=== PATIENT | female | born 1970 | race Caucasian/White ===

== ENCOUNTER 2017-03-07 23:07 | Emergency (ER) | payer SELFPAY ==
[2017-03-07 23:12] VITALS: BP 122/59; PULSE 104; RESP 16; TEMP 98.4; O2SAT 98
[2017-03-08] MEDS ORDERED: ONDANSETRON HCL 4 MG/2 ML VIAL ONE ×2 (03:05→03:06)
[2017-03-08] MEDS ORDERED: KETOROLAC TROMETHAMINE 30 MG/ML (IVP) VIAL ONE (03:05)
--- NOTE | 2017-03-08 04:19 | PD ---
HPI Chief Complaint: Flank/Kidney Pain Time Seen by Provider: 04:00 Travel History International Travel<30 days: No Contact w/Intl Traveler<30days: No Traveled to known affect area: No History of Present Illness HPI The patient is a 46 year old female who presents to the [facility] emergency department with a history of bilateral flank pain radiating into bilateral sides of the abdomen that is been present for the last month. The patient reports that the pain waxes and wanes in severity. She reports that today the pain became severe again. She reports the pain is worse in the right flank compared to the left. She reports that it is associated with dysuria and urinary frequency and urgency. The patient reports that a week and a half to 2 weeks ago she was seen at another emergency department and diagnosed with a kidney infection. She reports that she has a history of kidney stones and thought that it may be related to a kidney stone. She had a CT scan without contrast that showed no evidence of stones. The patient was treated with a 5 day course of ciprofloxacin which she completed a week ago. She reports that she briefly improved and then the symptoms began to worsen again. On review of systems, she denies having any known recent fevers, cough, congestion, neck pain, chest pain, shortness of breath, diarrhea,or neurologic symptoms. The patient reports that she has had nausea and vomiting, last 2 weeks ago related to the pain. The patient reports that she has also had problems with chronic constipation. She last moved her bowels yesterday in small amount. LMP: The beginning of February. [facility] Past Medical History Narrative Medical The patient's past medical history is significant for kidney stones. Past Surgical History Narrative Surgical The patient denies any past surgical history. Social History Alcohol Use: No Tobacco Use: Yes Substance Use: No Allergies-Medications (Allergen,Severity, Reaction): Coded Allergies: Penicillins (Verified Allergy, Severe, 03/07/17) Sulfa (Sulfonamide Antibiotics) (Verified Allergy, Severe, 03/07/17) Narrative Medication The patient completed a course of ciprofloxacin. The patient has a prescription for Eudora to be taken when necessary for her flank pain. Review of Systems Except as stated in HPI: all other systems reviewed are Neg General / Constitutional: No: Fever Eyes: No: Visual changes HENT: No: Headaches Cardiovascular: No: Chest Pain or Discomfort Respiratory: No: Shortness of Breath Gastrointestinal: Positive: Nausea, Vomiting, Abdominal Pain, No: Diarrhea, Hematemesis, Hematochezia, Changes in Bowel Habits, Indigestion, Loss of Appetite Genitourinary: Positive: Urgency, Frequency, Dysuria, Flank Pain Musculoskeletal: No: Pain Skin: No Rash Neurologic: No: Weakness Psychiatric: No: Depression Endocrine: No: Polydipsia Hematologic/Lymphatic: No: Easy Bruising Physical Exam Narrative General: The patient is a well-developed well-nourished female in no acute distress. Head and Neck exam: Head is normocephalic atraumatic. Eyes: EOMI, pupils are equal round and reactive to light. Nose: Midline septum with pink mucous membranes Mouth: Dentition unremarkable. Moist mucus membranes. Posterior oropharynx is not erythematous. No tonsillar hypertrophy. Uvula midline. Airway patent. Neck: No palpable lymphadenopathy. No nuchal rigidity. No thyromegaly. Cardiovascular: Regular rate and rhythm without murmurs, gallops, or rubs. Lungs: Clear to auscultation bilaterally. No wheezes, rhonchi, or rales. Abdomen: Soft, with tenderness on palpation of bilateral lower quadrants of the abdomen and suprapubic area. No other tenderness on palpation of the other quadrants of the abdomen. No guarding, rebound, or rigidity. Negative Newnan sign. Normal bowel sounds are audible. No tenderness on palpation of McBurney's point. Extremities: No clubbing, cyanosis, or edema. 2+ pulses in all 4 extremities. No calf tenderness on palpation. Back: No spinous process tenderness to palpation. Bilateral CVA tenderness worse on the right compared to the left. Neurologic Exam: Grossly nonfocal. Skin Exam: No rash noted. Intact skin that is warm and dry. Data Data Last Documented VS Vital Signs Date Time Temp Pulse Resp B/P (MAP) Pulse Ox O2 Delivery O2 Flow Rate FiO2 03/07/17 23:12 98.4 104 16 122/59 (80) 98 Orders Orders Ketorolac Inj (Toradol Inj) (03/08/17 03:05) Ondansetron Inj (Zofran Inj) (03/08/17 03:05) Ondansetron Inj (Zofran Inj) (03/08/17 03:06) Creatine Kinase (Cpk) (03/08/17 02:28) Comprehensive Metabolic Panel (03/08/17 02:28) C-Reactive Protein (Crp) (03/08/17 02:28) Lipase (03/08/17 02:28) Complete Blood Count With Diff (03/08/17 02:28) Iohexol 350 Inj (Omnipaque 350 Inj) (03/08/17 05:31) Ct Abd/Pel W Iv Contrast(Rout) (03/08/17 ) Urine Culture (03/08/17 05:13) Labs Laboratory Tests Test 03/08/17 02:28 White Blood Count 9.1 TH/MM3 Red Blood Count 5.05 MIL/MM3 Hemoglobin 15.3 GM/DL Hematocrit 46.1 % Mean Corpuscular Volume 91.2 FL Mean Corpuscular Hemoglobin 30.2 PG Mean Corpuscular Hemoglobin Concent 33.1 % Red Cell Distribution Width 14.3 % Platelet Count 238 TH/MM3 Mean Platelet Volume 9.1 FL Neutrophils (%) (Auto) 60.2 % Lymphocytes (%) (Auto) 29.8 % Monocytes (%) (Auto) 7.0 % Eosinophils (%) (Auto) 2.2 % Basophils (%) (Auto) 0.8 % Neutrophils # (Auto) 5.4 TH/MM3 Lymphocytes # (Auto) 2.7 TH/MM3 Monocytes # (Auto) 0.6 TH/MM3 Eosinophils # (Auto) 0.2 TH/MM3 Basophils # (Auto) 0.1 TH/MM3 CBC Comment DIFF FINAL Differential Comment Blood Urea Nitrogen 19 MG/DL Creatinine 0.99 MG/DL Random Glucose 72 MG/DL Total Protein 8.0 GM/DL Albumin 3.7 GM/DL Calcium Level 9.1 MG/DL Alkaline Phosphatase 86 U/L Aspartate Amino Transf (AST/SGOT) 44 U/L Alanine Aminotransferase (ALT/SGPT) 62 U/L Total Bilirubin 0.4 MG/DL Sodium Level 139 MEQ/L Potassium Level 4.3 MEQ/L Chloride Level 106 MEQ/L Carbon Dioxide Level 27.2 MEQ/L Anion Gap 6 MEQ/L Estimat Glomerular Filtration Rate 61 ML/MIN Total Creatine Kinase 83 U/L C-Reactive Protein LESS THAN 0.29 MG/DL Lipase 143 U/L MDM Medical Decision Making Medical Screen Exam Complete: Yes Emergency Medical Condition: Yes Medical Record Reviewed: Yes Differential Diagnosis Diverticulitis, versus kidney stone, versus musculoskeletal strain, versus constipation, versus colitis Narrative Course During the course of the patients emergency department visit, the patients history, examination, and differential diagnosis were reviewed with the patient. The patient had IV access obtained and blood work sent for analysis. The patient had a CT scan of the abdomen and pelvis ordered with IV contrast to evaluate for possible diverticulitis. The patient was initially provided normal saline 1 L IV fluid bolus, Toradol 15 mg IV, Zofran 4 mg IV. The patients laboratory studies were reviewed and remarkable for a CBC that is within normal limits. CMP is remarkable for BUN of 19, glucose 72, AST 44, ALT 62, CPK is 83, C reactive protein is less than 0.29, lipase 143. Urine was sent for culture as the patient was unable to provide enough of the sample for urinalysis. Radiology studies were reviewed and remarkable for CT scan of the abdomen and pelvis shows no acute abnormality. Reportedly read as a normal examination, however the lumbar spine did show some facet arthropathy. The patient will be discharged home with a prescription for Cipro, given the patient's allergy to penicillin and sulfa antibiotic. I suspect that the patient's course of antibiotic was too short and she reports that she did have improvement of her symptoms on the antibiotic. The patient reports that she does have Eudora at home that she can take as needed for pain. The patient is resting comfortably and feels better, is alert and in no distress. The patients results and examination findings were discussed with the patient. The repeat examination is unremarkable and benign. The history, exam, diagnostic testing, and current condition do not suggest any significant pathology to warrant further testing, continued ED treatment, admission, or surgical evaluation at this point. The vital signs have been stable. The patient does not have uncontrollable pain, intractable vomiting, or other significant symptoms. The patient's condition is stable and appropriate for discharge. The patient will pursue further outpatient evaluation with a primary care physician or other designated or consulting physician as indicated in the discharge instructions. The patient expressed understanding and was agreeable with this plan. Diagnosis Primary Impression: Abdominal pain Qualified Codes: R10.30 - Lower abdominal pain, unspecified Additional Impression: Bilateral flank pain Referrals: Primary Care Physician 3 days Patient Instructions: Flank Pain (ED), General Instructions, Urinary Tract Infection in Women (ED) Med/Other Pt SpecificInfo: Prescription(s) given Scripts Ciprofloxacin (Cipro) 500 Mg Tab 500 MG PO BID for Infection for 10 Days, #20 TAB 0 Refills Prov: Caroline Calderon MD 03/08/17 Disposition: 01 DISCHARGE HOME Condition: Stable Caroline Calderon MD Mar 08, 2017 04:19
[2017-03-08 04:20] LABS: AUTOMATED NEUTROPHIL # 5.4 TH/MM3 (1.8-7.7); BASOPHIL # 0.1 TH/MM3 (0-0.2); BASOPHIL % 0.8 % (0.0-2.0); EOSINOPHIL # 0.2 TH/MM3 (0-0.4); EOSINOPHIL % 2.2 % (0.0-4.0); HEMATOCRIT 46.1 % (35.0-46.0); HEMO FLAGS DIFF FINAL; LYMPH % 29.8 % (9.0-44.0); LYMPHOCYTE # 2.7 TH/MM3 (1.0-4.8); MEAN CELL VOLUME 91.2 FL (80.0-100.0); MEAN CORPUSCULAR HEMOGLOBIN 30.2 PG (27.0-34.0); MEAN CORPUSCULAR HGB CONC 33.1 % (32.0-36.0); NEUT % 60.2 % (16.0-70.0); PLATELET COUNT 238 TH/MM3 (150-450); RED BLOOD COUNT 5.05 MIL/MM3 (4.00-5.30); RED CELL DISTRIBUTION WIDTH 14.3 % (11.6-17.2); WHITE BLOOD COUNT 9.1 TH/MM3 (4.0-11.0)
[2017-03-08 04:55] LABS: ALKALINE PHOSPHATASE 86 U/L (45-117); ALT (GPT) 62 U/L (10-53); ANION GAP 6 MEQ/L (5-15); AST (GOT) 44 U/L (15-37); BICARBONATE 27.2 MEQ/L (21.0-32.0); BLOOD UREA NITROGEN 19 MG/DL (7-18); CHLORIDE 106 MEQ/L (98-107); CREATINE KINASE 83 U/L (26-192); GLOMERULAR FILTRATION RATE 61 ML/MIN (>89); POTASSIUM 4.3 MEQ/L (3.5-5.1); SODIUM (NA) 139 MEQ/L (136-145); TOTAL BILIRUBIN ADULT 0.4 MG/DL (0.2-1.0)
[2017-03-08] MEDS ORDERED: IOHEXOL 350 MG/ML 10 ML VIAL (for RAD DIAG) IVCONTRAST ONE (05:31)
[2017-03-08] MEDS ORDERED: CIPR-9 PO (06:34)
[2017-03-08 06:50] VITALS: BP 145/77
--- NOTE | 2017-03-08 08:45 | RADRPT ---
EXAM DATE/TIME: 03/08/2017 05:22 [facility] COMPARISON: No previous studies available for comparison. INDICATIONS : Bilateral flank pain and dysuria. IV CONTRAST: 100 cc Omnipaque 350 (iohexol) IV ORAL CONTRAST: No oral contrast ingested. RADIATION DOSE: 9.96 CTDIvol (mGy) MEDICAL HISTORY : None SURGICAL HISTORY : None. ENCOUNTER: Initial ACUITY: 1 week PAIN SCALE: 10/10 LOCATION: Bilateral flank TECHNIQUE: Volumetric scanning of the abdomen and pelvis was performed. Using automated exposure control and ad justment of the mA and/or kV according to patient size, radiation dose was kept as low as reasonably achievable to obtain optimal diagnostic quality images. DICOM format image data is available electro nically for review and comparison. FINDINGS: LOWER LUNGS: The visualized lower lungs are clear. LIVER: Homogeneous density without lesion. There is no dilation of the biliary tree. No calcified gallston es. SPLEEN: Normal size without lesion. PANCREAS: Within normal limits. KIDNEYS: Normal in size and shape. There is no mass, stone or hydronephrosis. ADRENAL GLANDS: Within normal limits. VASCULAR: There is no aortic aneurysm. BOWEL/MESENTERY: The stomach, small bowel, and colon demonstrate no acute abnormality. There is no free intraperitone al air or fluid. ABDOMINAL WALL: Within normal limits. RETROPERITONEUM: There is no lymphadenopathy. BLADDER: No wall thickening or mass. REPRODUCTIVE: Within normal limits. INGUINAL: There is no lymphadenopathy or hernia. MUSCULOSKELETAL: Within normal limits for patient age. Facet arthropathy changes are seen involving the lower lumbar s pine. CONCLUSION: Normal examination. Uriel Serna Jr., MD on March 08, 2017 at 5:46 Board Certified Radiologist. This report was verified electronically.
== END 2017-03-08 06:50 | disposition home or self-care (01) ==
LOC: NETRI 23:07 → NEPC 03-08 06:50
DX: R10.30 Lower abdominal pain, unspecified (principal); N39.0 Urinary tract infection, site not specified; Z72.0 Tobacco use
CPT/HCPCS: 74177; 80053; 82550; 83690; 85025; 86140; 87086; 99285; J1885; J2405; Q9967